=== PATIENT | male | born 1960 | race African-American/Black ===

== ENCOUNTER 2017-12-05 14:27 | Inpatient (IN) | payer BC ==
[2017-12-05] MEDS ORDERED: Labetalol IV* 5 MG/ML 20 ML VIAL IV PUSH ONE (15:18)
[2017-12-05 15:31] LABS: ABS Basophils 0.1 10^3/ul (0-0.2); ABS Eosinophils 0.3 10^3/ul (0-0.6); ABS Lymphocytes 1.7 10^3/ul (1.0-4.8); ABS Monocytes 0.7 10^3/ul (0-0.8); ABS Neutrophils 6.3 10^3/ul (1.5-7.7); ABS Nucleated RBC 0 10^3/ul; Eosinophil % 3.7 % (0-6); Hematocrit 40 % (42-52); Hemoglobin 13.8 g/dl (14.0-18.0); Lymphocyte % 18.9 % (25-47); Mean Corpuscular HGB Conc 35 g/dl (31-36); Mean Corpuscular Hemoglobin 32 pg (27-31); Mean Corpuscular Volume 92 fL (80-94); Mean Platelet Volume 8.1 um3 (7.4-10.4); Nucleated Red Blood Cells % 0.1; Platelet Count 255 10^3/ul (150-450); Red Blood Count 4.32 10^6/ul (4.00-5.40); Red Cell Distribution Width 14 % (10.5-15); White Blood Count 9.1 10^3/ul (3.5-10.8)
[2017-12-05 15:40] LABS: INR 1.09 (0.77-1.02)
--- NOTE | 2017-12-05 15:47 | RAD ---
HISTORY: htn COMPARISONS: None VIEWS: 1: frontal AP view of the chest at 3:39 PM FINDINGS: LINES AND TUBES: None. CARDIOMEDIASTINAL SILHOUETTE: The cardiac silhouette is enlarged. The aorta is tortuous.. PLEURA: The costophrenic angles are sharp. No pleural abnormalities are noted. LUNG PARENCHYMA: The lungs are clear. ABDOMEN: The upper abdomen is clear. There is no subphrenic gas. BONES AND SOFT TISSUES: No bone or soft tissue abnormalities are noted. IMPRESSION: CARDIOMEGALY WITH A TORTUOUS AORTA. IF THERE IS CLINICAL CONCERN FOR AORTIC DISSECTION, CONSIDER FURTHER EVALUATION WITH CT ANGIOGRAPHY OF THE CHEST.
[2017-12-05 15:54] LABS: EGFR Non-African American 76.1 (>60)
[2017-12-05] MEDS ORDERED: Labetalol IV* 200 MG in NS 0.9% 250 ML* 160 ML IVPB ONE (15:54)
--- NOTE | 2017-12-05 15:58 | ED ---
Hypertension - HPI Summary HPI Summary: This patient is a 57 year old M brought in by ambulance to ED with a chief complaint of hypertension since earlier today. The patient rates the pain 0/10 in severity. Symptoms aggravated by nothing. Symptoms alleviated by nothing. Patient reports chest congestion and cough (1.5 weeks ago) and SOB. Patient denies MURPYH, blurred vision, CP, back pain, and urinary problems. Patient has not been taking his HTN medications (Amlodipine). PMHx of HLD, denies DM and CAD. The patients PCP is in [place]. - History of Current Complaint Chief Complaint: EDHypertension Stated Complaint: DIFF BREATHING Time Seen by Provider: 12/05/17 15:16 Hx Obtained From: Patient Onset/Duration: Still Present Aggravating Factor(s): Nothing Alleviating Factor(s): Nothing Associated Signs & Symptoms: SOB, Other: - Patient reports chest congestion and cough (1.5 weeks ago) and SOB. Patient denies MURPHY, blurred vision, CP, back pain , and urinary problems. - Allergies/Home Medications Allergies/Adverse Reactions: Allergies Allergy/AdvReac Type Severity Reaction Status Date / Time No Known Allergies Allergy Verified 01/08/12 10:09 PMH/Surg Hx/FS Hx/Imm Hx Endocrine/Hematology History: Denies: Hx Diabetes, Hx Thyroid Disease Cardiovascular History: Reports: Hx Hypertension Respiratory History: Denies: Hx Asthma, Hx Chronic Obstructive Pulmonary Disease (COPD) GI History: Denies: Hx Ulcer - Surgical History Surgery Procedure, Year, and Place: 1998 - Hernia repair. 1986-ulnar nerve surgery Infectious Disease History: No Infectious Disease History: Denies: Hx Hepatitis, Hx Human Immunodeficiency Virus (HIV), Traveled Outside the [place] in Last 30 Days - Family History Known Family History: Positive: Hypertension - Social History Alcohol Use: Rare Substance Use Type: Reports: Marijuana Smoking Status (MU): Never Smoked Tobacco Review of Systems Negative: Blurred Vision Positive: Other - hypertenstion. Negative: Chest Pain Positive: Shortness Of Breath, Cough, Other - chest congestion Positive: no symptoms reported Positive: Other - denies back pain Negative: Headache All Other Systems Reviewed And Are Negative: Yes Physical Exam - Summary Physical Exam Summary: GENERAL: Patient is a well-developed and nourished M who is lying comfortable in the stretcher. Patient is not in any acute respiratory distress. HEAD AND FACE: Normocephalic EYES: PERRLA, EOMI x 2. EARS: Hearing grossly intact. MOUTH: Oropharynx within normal limits. NECK: Supple, trachea is midline, no adenopathy, no JVD, no carotid bruit. CHEST: Symmetric, no tenderness at palpation LUNGS: Clear to auscultation bilaterally. No wheezing or crackles. CVS: Regular rate and rhythm, S1 and S2 present, no murmurs or gallops appreciated. ABDOMEN: Soft, non-tender. Bowel sounds are normal. No abdominal abnormal pulsations. EXTREMITIES: Full ROM in all major joints, no edema, no cyanosis or clubbing. NEURO: Alert and oriented x 3. No acute neurological deficits. Speech is normal and follows commands. SKIN: Dry and warm Triage Information Reviewed: Yes Vital Signs On Initial Exam: Initial Vitals Temp Pulse Resp BP Pulse Ox 99.7 F 90 18 227/161 95 12/05/17 14:35 12/05/17 14:35 12/05/17 14:35 12/05/17 14:35 12/05/17 14:35 Vital Signs Reviewed: Yes Diagnostics - Vital Signs Vital Signs Temp Pulse Resp BP Pulse Ox 12/05/17 15:36 78 24 197/134 91 12/05/17 15:31 80 18 178/127 92 12/05/17 15:28 82 22 187/128 91 12/05/17 15:27 28 176/129 12/05/17 15:08 90 28 230/161 94 12/05/17 15:00 96 21 94 12/05/17 14:38 89 227/161 96 12/05/17 14:37 92 97 12/05/17 14:35 99.7 F 90 18 227/161 95 - Laboratory Lab Results: Lab Results 12/05/17 12/05/17 Range/Units 15:24 15:24 WBC 9.1 (3.5-10.8) 10^3/ul RBC 4.32 (4.00-5.40) 10^6/ul Hgb 13.8 L (14.0-18.0) g/dl Hct 40 L (42-52) % MCV 92 (80-94) fL MCH 32 H (27-31) pg MCHC 35 (31-36) g/dl RDW 14 (10.5-15) % Plt Count 255 (150-450) 10^3/ul MPV 8.1 (7.4-10.4) um3 Neut % (Auto) 68.9 (38-83) % Lymph % (Auto) 18.9 L (25-47) % Bent % (Auto) 7.7 H (0-7) % Eos % (Auto) 3.7 (0-6) % Baso % (Auto) 0.8 (0-2) % Absolute Neuts (auto) 6.3 (1.5-7.7) 10^3/ul Absolute Lymphs (auto) 1.7 (1.0-4.8) 10^3/ul Absolute Monos (auto) 0.7 (0-0.8) 10^3/ul Absolute Eos (auto) 0.3 (0-0.6) 10^3/ul Absolute Basos (auto) 0.1 (0-0.2) 10^3/ul Absolute Nucleated RBC 0 10^3/ul Nucleated RBC % 0.1 INR (Anticoag Therapy) 1.09 H (0.77-1.02) APTT 32.6 (26.0-36.3) seconds Result Diagrams: 12/06/17 05:26 12/06/17 05:26 Lab Statement: Any lab studies that have been ordered have been reviewed, and results considered in the medical decision making process. - Radiology CXR Radiology Interpretation Completed By: Radiologist - CARDIOMEGALY WITH A TORTUOUS AORTA. IF THERE IS CLINICAL CONCERN FOR AORTIC DISSECTION, CONSIDER FURTHER EVALUATION WITH CT ANGIOGRAPHY OF THE CHEST. Dr. Scanlon has reviewed this radiology report. - CT CTA chest/abd/pel CT Interpretation Completed By: Radiologist - Negative for aneurysm or dissection of the abdominal aorta. Nonemergent follow-up ultrasound of the LEFT kidney suggested to differentiate between a hyperdense cyst and a solid 2.4 cm lesion at the midpole. Dr. Scanlon has reviewed this radiology report. - EKG 1520 Cardiac Rate: NL - 87 BPM EKG Rhythm: Sinus Rhythm Summary of EKG Findings: LVH with minimal ST elevations in the anterior leads most likely secondary to LVH and L atrial enlargement. Re-Evaluation - Re-Evaluation First Eval Re-Evaluation Time: 16:49 Comment: Discussed results with the patient and plan for admission. Hypertension Course/Dx - Course Assessment/Plan: This patient is a 57 year old M brought in by ambulance to ED with a chief complaint of hypertension since earlier today. CXR reveals CARDIOMEGALY WITH A TORTUOUS AORTA. IF THERE IS CLINICAL CONCERN FOR AORTIC DISSECTION, CONSIDER FURTHER EVALUATION WITH CT ANGIOGRAPHY OF THE CHEST. CTA chest/abd/pel reveals Negative for aneurysm or dissection of the abdominal aorta. Nonemergent follow-up ultrasound of the LEFT kidney suggested to differentiate between a hyperdense cyst and a solid 2.4 cm lesion at the midpole. EKG done at 1520 reveals NSR at 87 BPM with LVH with minimal ST elevations in the anterior leads most likely secondary to LVH and L atrial enlargement. In the ED course, the patient was given Labetalol. The patient will be admitted. Case discussed with hospitalist. I discussed results with patient. The patient agrees with this plan. - Diagnoses Provider Diagnoses: Pulmonary embolism, PNA (pneumonia), Hypertension - Physician Notifications Discussed Care Of Patient With: Mack Astudillo Time Discussed With Above Provider: 17:43 Instructed by Provider To: Admit As Inpatient - Critical Care Time Critical Care Time: 30-74 min Discharge - Sign-Out/Discharge Documenting (check all that apply): Patient Departure - admit - Discharge Plan Condition: Stable Disposition: ADMITTED TO [facility] - Billing Disposition and Condition Condition: STABLE Disposition: Admitted to [facility] - Attestation Statements Document Initiated by Jimena: Yes Documenting Scribe: Cameron Mckeon Provider For Whom Jimena is Documenting (Include Credential): Angelina Scanlon MD Scribe Attestation: Cameron Gray, scribed for Angelina Scanlon MD on 12/07/17 at 0446. Scribe Documentation Reviewed: Yes Provider Attestation: The documentation as recorded by the Cameron hodges accurately reflects the service I personally performed and the decisions made by me, Angelina Scanlon MD
[2017-12-05] MEDS ORDERED: Iohexol 350* (CONTRAST) 500 ML MDV IV ONE (16:02)
--- NOTE | 2017-12-05 17:14 | RAD ---
INDICATION: Difficulty breathing. Congestion. Hypertension. Assess for aortic dissection. COMPARISON: December 05, 2017 chest radiograph. TECHNIQUE: Multidetector CT images were obtained from the lung apices to the ischial tuberosities with 100 mL Omnipaque 350. No oral contrast administered.. Multiplanar reformation including maximum intensity projection and 3-D arterial volume rendering. CHEST REPORT: Patchy alveolar consolidation at the RIGHT lower lobe. Negative for pleural effusions or pneumothorax. Negative for thoracic lymphadenopathy. Upper normal heart size. Negative for pericardial effusion.. Normal diameter thoracic aorta. Negative for aortic dissection. Discrete filling defect within the anterior segmental pulmonary artery of the RIGHT upper lobe consistent with pulmonary embolism. Additional acute pulmonary embolism is lies within the lateral segment of the RIGHT middle lobe. Negative for suspicious thoracic osseous lesions. CHEST IMPRESSION: #. Small burden of acute pulmonary embolism at the RIGHT upper lobe and RIGHT middle lobe as described. #. Consolidation at the RIGHT lower lobe may be secondary to pneumonia or smaller CT occult pulmonary emboli. #. Negative for pleural effusion. ABDOMEN PELVIS REPORT: LIVER / GALLBLADDER / PANCREAS / SPLEEN: Unremarkable liver, gallbladder, pancreas, and spleen within limits of arterial phase only series. Splenule noted adjacent to the spleen. ALIMENTARY TRACT: Negative for CT abnormality of the upper GI, small bowel, infra cecal appendix, or colon. Negative for ascites or free air. Small fat-containing umbilical hernia without inflammatory change. MESENTERIC: Unremarkable. ADRENAL / GENITOURINARY: Normal adrenal glands. Symmetric arterial phase enhancement of the kidneys. 2.4 cm hypodense cortical lesion at the midpole of the LEFT kidney is denser than typical for a simple cyst. 7.7 cm simple cyst at the lower pole of the LEFT kidney. Negative for hydronephrosis. Unremarkable ureters and urinary bladder. Symmetric seminal vesicles. RETROPERITONEAL: Negative for lymphadenopathy. VASCULAR: Normal diameter abdominal aorta and top normal diameter common iliac arteries. Negative for arterial dissection. No significant atherosclerotic plaque evident. Physiologic distention of the IVC. BONES: Negative for suspicious osseous lesions. SOFT TISSUE: Unremarkable. IMPRESSION: #. Negative for aneurysm or dissection of the abdominal aorta. #. Nonemergent follow-up ultrasound of the LEFT kidney suggested to differentiate between a hyperdense cyst and a solid 2.4 cm lesion at the midpole. #. Results discussed with Dr. Scanlon 12/05/2017 5:11 PM EDT
[2017-12-05] MEDS ORDERED: cefTRIAXone(*) 1 GM in NS 0.9% 50 ML* 50 ML IVPB ONE (17:32)
[2017-12-05] MEDS ORDERED: Azithromycin IV(*) 500 MG in NS 0.9% 250 ML* 250 ML IVPB ONE (17:32)
[2017-12-05] MEDS ORDERED: Potassium Chloride LIQUID* 20 MEQ PACKET PO ONE (18:00)
[2017-12-05] MEDS ORDERED: Ondansetron INJ* 2 MG/ML VIAL IV PRN (18:24)
[2017-12-05] MEDS ORDERED: Acetaminophen TAB* 325 MG PO PRN (18:24)
[2017-12-05] MEDS ORDERED: Benzonatate CAP* 100 MG PO PRN (18:24)
[2017-12-05] MEDS ORDERED: Labetalol IV* 200 MG in NS 0.9% 250 ML* 160 ML IVPB SCH (19:00)
[2017-12-05] MEDS ORDERED: NS 0.9% IVPB SCH (20:00)
[2017-12-05] MEDS ORDERED: LABETALOL IVPB SCH (20:00)
[2017-12-05] MEDS: Rivaroxaban TAB(*) 15 MG PO SCH (20:46)
[2017-12-05] MEDS: guaiFENesin ER TAB 600 MG PO SCH (20:47)
[2017-12-05] MEDS ORDERED: niCARdipine 0.1MG/ML IVPREMIX* 20 MG/200 ML BAG IV SCH (23:00)
[2017-12-05] MEDS ORDERED: niCARdipine 0.1MG/ML IVPREMIX* 20 MG/200 ML BAG IV ONE (23:24)
[2017-12-05] MEDS ORDERED: Carvedilol TAB* 6.25 MG ONE (23:33)
--- NOTE | 2017-12-05 23:54 | HP ---
CC: Dr. Longoria * HISTORY AND PHYSICAL: DATE OF ADMISSION: 12/05/17 PRIMARY CARE DOCTOR: Dr. Longoria. ATTENDING PHYSICIAN WHILE IN THE HOSPITAL: Dr. Mack Astudillo.* (DICTATED BY MARY VOGT) CHIEF COMPLAINT: High blood pressure, cough, chest congestion. HISTORY OF PRESENT ILLNESS: Mr. Bishop is a 71-year-old male with past medical history significant for only hypertension and hyperlipidemia. The patient was previously on medications for his blood pressure, but he stopped taking them last April along with the medications for his hyperlipidemia due to feeling if he did not need them anymore. The patient has had a significant elevation in his blood pressure before with noncompliance of medications; however, he states that he generally had a good control while on his medications. The patient has been having 2 weeks of productive cough with intermittent nasal congestion, malaise, and hemoptysis. The patient has no sick contact. No recent changes in his diet. The patient has not been taking any medications for his cough [id number]. No one around the patient has a flu. The patient does work at [employer] and has contact with students at the [employer]. The patient has a strong family history of high blood pressure. No known family history of coronary artery disease. The patient has no other known systemic diseases. The patient never had a heart attack. The patient has never seen a software educator or had any cardiac workup that he knows of. The patient generally coughs with a deep breath and has troubling lying flat; however, he is not having trouble any lying flat, swelling in his legs, or other symptoms of CHF. The patient denied any recent long car trips, does not have any known cancers. No recent surgeries or other periods of inactivity except for being off work 4 days last week. The patient did not have any chest pain. The patient has not passed out. The patient denies any fevers or chills , nausea, vomiting, abdominal pain. The patient has trouble staying away from salty foods per his own report and knows he should better, the patient has no other significant changes in his diet. The patient went to his primary care doctor today for his respiratory complaints and had a blood pressure per his report highest level of 212/135 at his primary care doctor's office. The patient came to the emergency department and initially had a blood pressure of 227/161, which decreased to 179 /131 on labetalol drip. The patient had a concern for aortic dissection on his chest x-ray and had a CTA of his chest, which revealed several subsegmental pulmonary emboli and consolidation possibly consistent with pneumonia. The patient was started on labetalol drip as well as being given azithromycin and ceftriaxone for possible community acquired pneumonia and also referred to the hospitalist service for evaluation of admission. PAST MEDICAL HISTORY: Hypertension, hyperlipidemia. PAST SURGICAL HISTORY: Ulnar nerve repair, hernia repair. MEDICATIONS: The patient is on no medications. The patient was previously prescribed: 1. Benazepril. 2. Amlodipine. 3. Pravastatin. ALLERGIES: The patient has no known drug allergies. FAMILY HISTORY: The patient's mother of lymphoma. The patient's father of old age and possibly had a diagnosis of angina of unknown cause. The patient's brother recently had TIA in the setting of hypertensive emergency. The patient has several symptoms with hypertension. The patient has no other significant cancers or heart disease that runs in his family. SOCIAL HISTORY: The patient has never smoked. The patient drinks alcohol very rarely. The patient smokes marijuana occasionally. 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 The patient is from his , has 2 children. The patient's surrogate decision maker will be his , Belem Bishop. REVIEW OF SYSTEMS: A 14-point review of systems was reviewed and is negative except as above in the HPI. PHYSICAL EXAMINATION GENERAL: The patient is a 57-year-old male, who appears stated age and sitting comfortably in bed, in no acute distress. VITAL SIGNS: At the time of evaluation, temperature 99.7, pulse rate 82, respiratory rate 19, oxygen saturation 94% on room air, blood pressure 179/136. HEENT: Head: Normocephalic, atraumatic. Sclerae anicteric. No conjunctival injection. Nasal mucosa moist. Oral mucosa moist. No pharyngeal erythema, discharge, or exudate. NECK: Supple, nontender. No lymphadenopathy. No carotid bruit auscultated. No JVD. RESPIRATORY: Clear to auscultation bilaterally. No wheezes, rales or rhonchi. Good air exchange bilaterally. HEART: Regular rate and rhythm. Loud S2 with normal splitting. No clicks, murmurs, gallops or rubs. Pulse is 2+ in the dorsalis pedis, posterior tibialis , and radial areas. Trace bilateral lower extremity edema. ABDOMEN: Soft, distended, nontender. Bowel sounds presents. Normoactive in all 4 quadrants. No hepatosplenomegaly. No abdominal bruits auscultated. No hepatojugular reflux. GENITOURINARY: No suprapubic or CVA tenderness. SKIN: Clean, dry, intact. No rash. NEUROLOGIC: Cranial nerves II through XII intact. No focal deficits. Alert and oriented x3. PSYCHIATRIC: Pleasant and cooperative. DIAGNOSTIC STUDIES/LAB DATA: White blood cell count 9.1, hemoglobin 13.8, hematocrit 40, platelet count 255, INR 1.09, aPTT 32.6. Sodium 140, potassium 3.4, chloride 105, carbon dioxide 27, anion gap 8, BUN 15, creatinine 1.01, glucose 92, lactic acid 0.7, calcium 8.9, bilirubin 0.1, AST 40, ALT 14, alkaline phosphatase 104, Troponin I 0.01, CRP 18.3, BNP 74, total protein 7.4, albumin 3.9, globulin 4.0. STUDIES: Chest x-ray read as cardiomegaly with torturous aorta. If there is clinical concern for aortic dissection, consider further evaluation with CT angiography of the chest. Electrocardiogram shows normal sinus rhythm, concave ST elevation in V1, V2, and V3 in the setting of incomplete right bundle branch block, probable left anterior enlargement. No signs of right heart strain, left axis deviation, left ventricular hypertrophy by Sokolow-Pina criteria with R-wave greater than 13 millivolts in aVL. Chest, abdomen, pelvis CTA read as small burden of acute pulmonary embolism at the right upper lobe and right middle lobe, consolidation of the right lower lobe may be secondary to pneumonia or smaller occult pulmonary emboli, negative for pleural effusion, negative for aneurysm, resection of the abdominal aorta, non-emergent followup ultrasound of the left kidney suggested to differentiate between a cyst and a solid 2.4 cm lesion at the mid pole. ASSESSMENT AND PLAN: IMPRESSION: Mr. Bishop is 57-year-old male with past medical history significant for hypertension, hyperlipidemia, has been noncompliant with medications and has had 2 weeks upper respiratory symptoms, who was sent in from his primary care provider for very high blood pressure and was found have possible pneumonia as well as small segmental pulmonary emboli within the lungs. The patient will be admitted to hospital for treatment of his blood pressure, pneumonia, and his pulmonary embolism. 1. Hypertensive urgency. The patient has blood pressures with a maximum reading of 230/161. The patient has no signs of end organ damage with normal kidney function, negative troponin to this point. No changes in vision. No neurologic deficits. No changes. The patient has shortness of breath related to upper respiratory infection, but no increased shortness of breath, no signs of acute congestive heart failure. The patient has a normal BNP. The patient will be admitted to the hospital, started on labetalol drip for a goal blood pressure between 160 and 180 for the first 24 hours and then the patient will be reintroduced with his home blood pressure medications to avoid hypoperfusion. The patient will be monitored closely in the ICU for bradycardia , neurologic changes, and chest pain. The patient will have a repeat EKG in the morning. The patient will have echocardiogram as his echocardiogram showed signs of left ventricular enlargement and the patient will have serial troponins and rechecked in the morning for end organ damage. 2. Community acquired pneumonia. The patient has what sounds to be a pneumonia that may have started as an upper respiratory infection and evolved. The patient's CT also states that this could be due to pulmonary embolism; however, given the patient borderline fever, heart rate over 90 and elevated CRP , we will treat at this time for community acquired pneumonia. We will repeat a procalcitonin in the morning. We will check urine antigens and monitor closely with supportive treatment with flutter valve, antitussives, and expectorants. 3. Pulmonary emboli. The patient has 2 segmental pulmonary emboli. The patient has no objective signs of pulmonary embolism. He had no chest pain. No hypoxia. No tachycardia. No hemoptysis. No hypotension. The patient has an sPESI score of 0 indicating a low risk for complication. The patient will be started on Xarelto 15 mg p.o. b.i.d. This is an unprovoked deep venous thrombosis. The duration of this therapy will be decided after a minimum of 3 months with the patient's primary care provider. The patient has no objective signs of deep venous thrombosis. We will not check for lower extremity deep venous thrombosis at this time due to initiation of anticoagulation and strong cardiopulmonary reserve. We will check troponins and echocardiogram to assess for right heart dysfunction related to the patient's pulmonary embolism. 4. Hyperlipidemia. The patient will be started on Lipitor while in the hospital and will be transitioned back to his home dose of pravastatin, which he should be taking upon discharge. 5. DVT prophylaxis. The patient is being started on Xarelto. 6. FEN. The patient will have a heart healthy diet without caffeine as well, so the patient will have a lipid profile and the hemoglobin A1c. 7. Disposition. The patient will be admitted inpatient to the ICU. TIME SPENT: Approximately 1 hour spent on this admission with the patient, 30 of which was spent [id number] with the patient obtaining history and physical and discussing treatment plan. This plan was discussed with my attending, Dr. Mack Astudillo, and he is in agreement. MARY VOGT [id number]/[facility] #: [id number] SHERIN
[2017-12-06] MEDS: Carvedilol TAB* 25 MG PO SCH ×2 (00:11→08:43)
[2017-12-06 05:35] LABS: ABS Basophils 0.1 10^3/ul (0-0.2); ABS Eosinophils 0.4 10^3/ul (0-0.6); ABS Lymphocytes 2.2 10^3/ul (1.0-4.8); ABS Neutrophils 5.7 10^3/ul (1.5-7.7); ABS Nucleated RBC 0 10^3/ul; Eosinophil % 4.5 % (0-6); Hematocrit 36 % (42-52); Hemoglobin 12.2 g/dl (14.0-18.0); Lymphocyte % 23.4 % (25-47); Mean Corpuscular HGB Conc 34 g/dl (31-36); Mean Corpuscular Hemoglobin 32 pg (27-31); Mean Corpuscular Volume 92 fL (80-94); Mean Platelet Volume 8.1 um3 (7.4-10.4); Nucleated Red Blood Cells % 0; Platelet Count 222 10^3/ul (150-450); Red Blood Count 3.88 10^6/ul (4.00-5.40); Red Cell Distribution Width 14 % (10.5-15); White Blood Count 9.4 10^3/ul (3.5-10.8)
[2017-12-06] MEDS ORDERED: Potassium Chloride LIQUID* 20 MEQ PACKET PO ONE (06:58)
[2017-12-06] MEDS: guaiFENesin ER TAB 600 MG PO SCH ×2 (08:44→21:28)
[2017-12-06] MEDS: Rivaroxaban TAB(*) 15 MG PO SCH ×2 (08:44→21:28)
--- NOTE | 2017-12-06 13:30 | ECHO ---
Patient: JELLY PERLA [facility] Rec#: [id number] : 1960 Date: 12/06/2017 Age: 57y Height: 185.42 cm / 73.0 in Weight: 104.33 kg / 229.9 lbs Sex: M BSA: 2.28 Room#: ICU 8 Admit Date#: 12/05/2017 Type: Inpatient Referring: John Joyner Reading: Saurabh Peterson MD Liquid Chlorine Operator: Regina Murray RDCS,RDMS CC: Peggy Longoria MD Transthoracic Echocardiogram Indication: PE, ABN EKG BP: 151/107 HR: 71 Rhythm: NSR Findings History: HTN, HLD Technical Comments: The study quality is good. Left Ventricle: The left ventricular chamber size is normal. Moderate concentric left ventricular hypertrophy is observed. The estimated ejection fraction is 55-60%. Abnormal left ventricular diastolic function is observed. The left ventricular diastolic filling pattern is consistent with pseudonormalization. The left ventricular diastolic filling pattern is consistent with elevated mean left atrial pressure. Left Atrium: The left atrium is moderately dilated. Right Ventricle: The right ventricular chamber size and systolic function are within normal limits. Right Atrium: The right atrial cavity size is normal. Aortic Valve: The aortic valve is trileaflet. Systolic excursion of the aortic valve is normal. There is a trace of aortic regurgitation. There is no evidence of aortic stenosis. Mitral Valve: The mitral valve leaflets are mildly thickened. There is mild mitral regurgitation. There is no evidence of mitral stenosis. Tricuspid Valve: The tricuspid valve leaflets are normal. There is trace tricuspid regurgitation. Unable to estimate the right ventricular systolic pressure. Pulmonic Valve: The pulmonic valve appears normal. There is a trace pulmonic regurgitation. Pericardium: There is no significant pericardial effusion. Aorta: There is mild dilatation of the ascending aorta. There is no dilatation of the aortic arch. There is moderate dilatation of the aortic root. Pulmonary Artery: The main pulmonary artery appears normal. Venous: The inferior vena cava is dilated. There is a greater than 50% respiratory change in the inferior vena cava dimension. Summary: There was not any prior study for comparison. Conclusions Moderate concentric left ventricular hypertrophy is observed. The estimated ejection fraction is 55-60%. The left ventricular diastolic filling pattern is consistent with pseudonormalization. The left atrium is moderately dilated. There is trace tricuspid regurgitation. There is mild mitral regurgitation. Measurements Name Value Normal Range RVIDd (AP) 2D 3.1 cm (0.9 - 2.6) RVDdMajor (2D) 2.9 cm (2.2 - 4.4) RAd ISD 4CH 4.3 cm (3.4 - 4.9) RA (A4C)W 4.1 cm (2.9 - 4.6) IVSd (2D) 1.8 cm (0.6 - 1) LVPWd (2D) 1.6 cm (0.6 - 1) LVIDd (2D) 5 cm (3.6 - 5.4) LVIDs (2D) 4 cm - LV FS (2D) 20 % (25 - 45) Aortic Annulus 2.3 cm (1.4 - 2.6) Ao root diameter (2D) 4.2 cm (2.1 - 3.5) Ascending Ao 3.8 cm (2.1 - 3.4) Aortic arch 3.4 cm (1.8 - 3.4) LA dimension (AP) 2D 4.6 cm (2.3 - 3.8) LAd ISD 4CH 5.1 cm (2.9 - 5.3) LA ISD 4CH W 4.6 cm (2.5 - 4.5) Name Value Normal Range LA ESV SP 4CH (A/L) 102.81 ml - LA ESV SP 2CH (A/L) 93.63 ml - LA ESV BP (A/L) 105.54 ml - LA ESV BP (A/L) index 46 ml/m2 - LA ESV SP 4CH (MOD) 94.93 ml - LA ESV SP 2CH (MOD) 89.91 ml - Name Value Normal Range MV E-wave Vmax 0.6 m/sec - MV deceleration time 261 msec - MV A-wave Vmax 0.5 m/sec - MV E:A ratio 1.2 ratio - P. vein S-wave Vmax 0.4 m/sec - P. vein D-wave Vmax 0.3 m/sec - P. vein S:D Vmax ratio 1.4 ratio - P. vein A-wave duration 121 msec - LV septal e' Vmax 0.04 m/sec - LV lateral e' Vmax 0.04 m/sec - LV E:e' septal ratio 14 ratio - LV E:e' lateral ratio 14 ratio - Name Value Normal Range AV Vmax 1.3 m/sec - AV VTI 27.3 cm - AV peak gradient 7 mmHg - AV mean gradient 4.2 mmHg - LVOT Vmax 1 m/sec - LVOT VTI 21 cm - LVOT peak gradient 4 mmHg - LVOT mean gradient 2.3 mmHg - Name Value Normal Range RAP 8 mmHg - IVC diameter 2.6 cm - Name Value Normal Range PV Vmax 0.5 m/sec - PV peak gradient 1 mmHg -
--- NOTE | 2017-12-06 15:41 | PN ---
Subjective Date of Service: 12/06/17 - Interval History: Patient is feeling well today. Minor SOB, persistent but improving cough. Patient denies CP, Dizziness, F/C, N/V, abdominal pain, diarrhea, dysuria, MURPHY, changes in vision, weakness, or other pain. Family History: Unchanged from Admission Social History: Unchanged from Admission Past Medical History: Unchanged from Admission Objective Active Medications: Acetaminophen (Tylenol Tab*) 650 mg PO Q6H PRN PRN Reason: FEVER/PAIN Amlodipine Besylate (Norvasc Tab*) 5 mg PO DAILY [facility] Atorvastatin Calcium (Lipitor*) 40 mg PO 1700 [facility] Benzonatate (Tessalon Cap*) 100 mg PO BID PRN PRN Reason: COUGH Carvedilol (Coreg Tab*) 12.5 mg PO BID [facility] Guaifenesin (Mucinex*) 1,200 mg PO BID [facility] Last Admin: 12/06/17 08:44 Dose: 1,200 mg Ceftriaxone Sodium 1 gm/ (Sodium Chloride) 50 mls @ 200 mls/hr IVPB Q24H [facility] Azithromycin 250 mg/ Sodium (Chloride) 250 mls @ 250 mls/hr IVPB Q24H [facility] Ondansetron HCl (Zofran Inj*) 4 mg IV Q6H PRN PRN Reason: NAUSEA Rivaroxaban (Xarelto(*)) 15 mg PO BID [facility] Last Admin: 12/06/17 08:44 Dose: 15 mg Vital Signs - 8 hr 12/06/17 12/06/17 12/06/17 08:00 08:01 08:30 Temperature 99.4 F Pulse Rate 63 63 65 Respiratory 18 14 22 Rate Blood Pressure 152/109 155/111 (mmHg) O2 Sat by Pulse 93 92 93 Oximetry 12/06/17 12/06/17 12/06/17 09:00 09:01 10:00 Temperature Pulse Rate 66 66 Respiratory 23 21 17 Rate Blood Pressure 169/117 (mmHg) O2 Sat by Pulse 93 93 Oximetry 12/06/17 12/06/17 12/06/17 10:06 10:30 11:00 Temperature Pulse Rate Respiratory 21 18 20 Rate Blood Pressure 132/97 152/107 147/103 (mmHg) O2 Sat by Pulse Oximetry 12/06/17 12/06/17 12/06/17 11:01 11:30 12:00 Temperature Pulse Rate Respiratory 23 19 20 Rate Blood Pressure 163/110 146/104 (mmHg) O2 Sat by Pulse Oximetry 12/06/17 12/06/17 12/06/17 12:01 12:30 13:00 Temperature Pulse Rate Respiratory 17 19 23 Rate Blood Pressure 161/114 153/108 (mmHg) O2 Sat by Pulse Oximetry 12/06/17 12/06/17 12/06/17 13:01 13:30 14:00 Temperature Pulse Rate Respiratory 26 20 23 Rate Blood Pressure 161/108 (mmHg) O2 Sat by Pulse Oximetry 12/06/17 12/06/17 12/06/17 14:30 15:00 15:01 Temperature Pulse Rate Respiratory 22 23 20 Rate Blood Pressure 139/95 130/88 (mmHg) O2 Sat by Pulse Oximetry Oxygen Devices in Use Now: None Appearance: Patient is a 57yo male who appears stated age and is sitting in the bed in NAD. Eyes: No Scleral Icterus, PERRLA Ears/Nose/Mouth/Throat: NL Teeth, Lips, Gums, Clear Oropharnyx, Mucous Membranes Moist Neck: NL Appearance and Movements; NL JVP, Trachea Midline Respiratory: Symmetrical Chest Expansion and Respiratory Effort, Clear to Auscultation Cardiovascular: NL Sounds; No Murmurs; No JVD, RRR, No Edema Abdominal: NL Sounds; No Tenderness; No Distention, No Hepatosplenomegaly Lymphatic: No Cervical Adenopathy Extremities: No Edema, No Clubbing, Cyanosis Skin: No Rash or Ulcers, No Nodules or Sclerosis Neurological: Alert and Oriented x 3, NL Sensation, NL Muscle Strength and Tone , - - CN II-XII intact. Result Diagrams: 12/06/17 05:26 12/06/17 05:26 Additional Lab and Data: Lab Results Microbiology and Other Data: Microbiology 12/06/17 08:28 Legionella Urinary Antigen - Final Urine Negative Legionella Antigen Streptococcus pneumoniae Ag Screen - Final Negative S. pneumo Antigen 12/05/17 19:42 Nasal Screen MRSA (PCR) - Final Nasal Mrsa Not Detected Assess/Plan/Problems-Billing Assessment: Patient is a 57yo male with a PMH for HTN, HLD who presents with cough and was found to have hypertensive urgency, Segmental Pulmonary Emboli and possible Community acquired pneumonia. - Patient Problems (1) Hypertensive urgency Current Visit: Yes Status: Acute Code(s): I16.0 - HYPERTENSIVE URGENCY SNOMED Code(s): 485045741 Comment: - Initial BP up to 230 systolic. - Almost 24hrs after reading and BP is down to approximately 160 systolic. - No signs of hypoperfusion - Started on Carvedilol PO, decrease to 12.5mg BID and Start Low-dose amlodipine - Plan to treat to goal BP - EKG and Echo consistent with LVH consistent with chronic uncontrolled HTN. - No signs of end-organ damage or acute CHF. (2) Community acquired pneumonia Current Visit: Yes Status: Acute Code(s): J18.9 - PNEUMONIA, UNSPECIFIED ORGANISM SNOMED Code(s): 272084784 Comment: - Productive cough, CT evidence of consolidation - Will treat for CAP despite negative procalcitonin - Cough improving with supportive care and pulmonary toilet. (3) Pulmonary embolism Current Visit: Yes Status: Acute Code(s): I26.99 - OTHER PULMONARY EMBOLISM WITHOUT ACUTE COR PULMONALE SNOMED Code(s): 87340082 Comment: - Segmental x2 - Unprovoked - sPESI 0 - Started on Xarelto for treatment of at least 3 months. - No right heart strain or elevated troponins. (4) Hyperlipidemia Current Visit: Yes Status: Acute Code(s): E78.5 - HYPERLIPIDEMIA, UNSPECIFIED SNOMED Code(s): 51339022 Comment: - Resume statin which patient has not been taking. (5) DVT prophylaxis Current Visit: Yes Status: Acute Code(s): FRA9712 - SNOMED Code(s): 116794182 Comment: - Xarelto (6) Full code status Current Visit: Yes Status: Acute Code(s): Z78.9 - OTHER SPECIFIED HEALTH STATUS SNOMED Code(s): 586667965
[2017-12-06] MEDS ORDERED: amLODIPine TAB* 5 MG PO SCH (16:00)
[2017-12-06] MEDS: Azithromycin IV(*) 250 MG in NS 0.9% 250 ML* 250 ML IVPB SCH (16:36)
[2017-12-06] MEDS: Atorvastatin* 40 MG TAB PO SCH (16:42)
[2017-12-06] MEDS: cefTRIAXone(*) 1 GM in NS 0.9% 50 ML* 50 ML IVPB SCH (18:40)
[2017-12-06] MEDS ORDERED: Carvedilol TAB* 6.25 MG PO SCH (21:00)
[2017-12-07 06:22] LABS: ABS Basophils 0.1 10^3/ul (0-0.2); ABS Eosinophils 0.5 10^3/ul (0-0.6); ABS Lymphocytes 2.1 10^3/ul (1.0-4.8); ABS Monocytes 0.9 10^3/ul (0-0.8); ABS Nucleated RBC 0 10^3/ul; Eosinophil % 4.8 % (0-6); Hematocrit 39 % (42-52); Hemoglobin 12.8 g/dl (14.0-18.0); Lymphocyte % 21.9 % (25-47); Mean Corpuscular HGB Conc 33 g/dl (31-36); Mean Corpuscular Hemoglobin 31 pg (27-31); Mean Corpuscular Volume 93 fL (80-94); Mean Platelet Volume 8.6 um3 (7.4-10.4); Nucleated Red Blood Cells % 0.1; Platelet Count 229 10^3/ul (150-450); Red Blood Count 4.13 10^6/ul (4.00-5.40); Red Cell Distribution Width 14 % (10.5-15); White Blood Count 9.5 10^3/ul (3.5-10.8)
[2017-12-07 06:45] LABS: EGFR Non-African American 66.9 (>60)
[2017-12-07] MEDS: amLODIPine TAB* 5 MG PO SCH (08:01)
[2017-12-07] MEDS: Carvedilol TAB* 25 MG PO SCH ×2 (08:01→19:47)
[2017-12-07] MEDS: guaiFENesin ER TAB 600 MG PO SCH ×2 (08:01→19:47)
[2017-12-07] MEDS: Rivaroxaban TAB(*) 15 MG PO SCH ×2 (08:01→19:47)
[2017-12-07] MEDS: Lactobacillus Acidophilus* 1 TAB PO SCH (15:16)
[2017-12-07] MEDS: Lisinopril TAB* 5 MG PO SCH (15:25)
--- NOTE | 2017-12-07 15:34 | PN ---
Subjective Date of Service: 12/07/17 Interval History: Patient is feeling well. Cough is diminishing. Patient denies CP, SOB, dizziness , F/C, N/V, abdominal pain. Patient is having loose stools. Patient denies dysuria. oliguria, or other alarming symptoms. Family History: Unchanged from Admission Social History: Unchanged from Admission Past Medical History: Unchanged from Admission Objective Active Medications: Acetaminophen (Tylenol Tab*) 650 mg PO Q6H PRN PRN Reason: FEVER/PAIN Amlodipine Besylate (Norvasc Tab*) 10 mg PO DAILY [facility] Last Admin: 12/07/17 08:01 Dose: 10 mg Atorvastatin Calcium (Lipitor*) 40 mg PO 1700 [facility] Last Admin: 12/06/17 16:42 Dose: 40 mg Benzonatate (Tessalon Cap*) 100 mg PO BID PRN PRN Reason: COUGH Carvedilol (Coreg Tab*) 25 mg PO BID [facility] Last Admin: 12/07/17 08:01 Dose: 25 mg Guaifenesin (Mucinex*) 1,200 mg PO BID [facility] Last Admin: 12/07/17 08:01 Dose: 1,200 mg Ceftriaxone Sodium 1 gm/ (Sodium Chloride) 50 mls @ 200 mls/hr IVPB Q24H [facility] Last Admin: 12/06/17 18:40 Dose: 200 mls/hr Azithromycin 250 mg/ Sodium (Chloride) 250 mls @ 250 mls/hr IVPB Q24H [facility] Last Admin: 12/06/17 16:36 Dose: 250 mls/hr Lactobacillus Rhamnosus (Lactobacillus Acidophilus*) 1 tab PO DAILY [facility] Last Admin: 12/07/17 15:16 Dose: 1 tab Lisinopril (Prinivil Tab*) 5 mg PO DAILY [facility] Last Admin: 12/07/17 15:25 Dose: 5 mg Ondansetron HCl (Zofran Inj*) 4 mg IV Q6H PRN PRN Reason: NAUSEA Rivaroxaban (Xarelto(*)) 15 mg PO BID [facility] Last Admin: 12/07/17 08:01 Dose: 15 mg Vital Signs - 8 hr 12/07/17 12/07/17 12/07/17 07:31 08:00 08:46 Temperature 98.9 F 98.6 F Pulse Rate 69 69 Respiratory 20 20 20 Rate Blood Pressure 179/109 177/120 (mmHg) O2 Sat by Pulse 98 92 Oximetry 12/07/17 12/07/17 11:31 15:15 Temperature 98.1 F 98.6 F Pulse Rate 61 66 Respiratory 18 20 Rate Blood Pressure 152/101 180/119 (mmHg) O2 Sat by Pulse 96 99 Oximetry Oxygen Devices in Use Now: None Appearance: Patient is a 57yo male who appears stated age and is sitting in the bed in NAD. Eyes: No Scleral Icterus, PERRLA Ears/Nose/Mouth/Throat: NL Teeth, Lips, Gums, Clear Oropharnyx, Mucous Membranes Moist Neck: NL Appearance and Movements; NL JVP Respiratory: Symmetrical Chest Expansion and Respiratory Effort, Clear to Auscultation Cardiovascular: NL Sounds; No Murmurs; No JVD, RRR, No Edema Abdominal: NL Sounds; No Tenderness; No Distention, No Hepatosplenomegaly Lymphatic: No Cervical Adenopathy Extremities: No Edema, No Clubbing, Cyanosis Skin: No Rash or Ulcers, No Nodules or Sclerosis Neurological: Alert and Oriented x 3, NL Sensation, NL Muscle Strength and Tone , - - CN II-XII intact. Result Diagrams: 12/07/17 05:56 12/07/17 05:56 Additional Lab and Data: Lab Results Microbiology and Other Data: Microbiology 12/06/17 08:28 Legionella Urinary Antigen - Final Urine Negative Legionella Antigen Streptococcus pneumoniae Ag Screen - Final Negative S. pneumo Antigen 12/05/17 19:42 Nasal Screen MRSA (PCR) - Final Nasal Mrsa Not Detected Assess/Plan/Problems-Billing Assessment: Patient is a 57yo male with a PMH for HTN, HLD who presents with cough and was found to have hypertensive urgency, Segmental Pulmonary Emboli and possible Community acquired pneumonia. - Patient Problems (1) Hypertensive urgency Current Visit: Yes Status: Acute Code(s): I16.0 - HYPERTENSIVE URGENCY SNOMED Code(s): 638063945 Comment: - Initial BP up to 230 systolic. - No signs of hypoperfusion - Very poor control on Carvedilol PO 25mg BID and Amlodipine 10mg PO. Start Lisinopril 5mg PO daily. - Plan to treat to goal BP - EKG and Echo consistent with LVH consistent with chronic uncontrolled HTN. - No signs of end-organ damage or acute CHF. (2) Community acquired pneumonia Current Visit: Yes Status: Acute Code(s): J18.9 - PNEUMONIA, UNSPECIFIED ORGANISM SNOMED Code(s): 912263424 Comment: - Productive cough, CT evidence of consolidation - Will treat for CAP despite negative procalcitonin - Cough improving with supportive care and pulmonary toilet. (3) Pulmonary embolism Current Visit: Yes Status: Acute Code(s): I26.99 - OTHER PULMONARY EMBOLISM WITHOUT ACUTE COR PULMONALE SNOMED Code(s): 27161346 Comment: - Segmental x2 - Unprovoked - sPESI 0 - Started on Xarelto for treatment of at least 3 months. - No right heart strain or elevated troponins. - Will need 21 total days of 15mg PO BID. (4) Hyperlipidemia Current Visit: Yes Status: Acute Code(s): E78.5 - HYPERLIPIDEMIA, UNSPECIFIED SNOMED Code(s): 16273374 Comment: - Resume statin which patient has not been taking. (5) DVT prophylaxis Current Visit: Yes Status: Acute Code(s): TWX0721 - SNOMED Code(s): 608493141 Comment: - Xarelto (6) Full code status Current Visit: Yes Status: Acute Code(s): Z78.9 - OTHER SPECIFIED HEALTH STATUS SNOMED Code(s): 417501894 Status and Disposition: Inpatient.
[2017-12-07] MEDS: Atorvastatin* 40 MG TAB PO SCH (16:28)
[2017-12-07] MEDS: Azithromycin IV(*) 250 MG in NS 0.9% 250 ML* 250 ML IVPB SCH (16:29)
[2017-12-07] MEDS: cefTRIAXone(*) 1 GM in NS 0.9% 50 ML* 50 ML IVPB SCH (17:35)
[2017-12-08] MEDS: amLODIPine TAB* 5 MG PO SCH (09:23)
[2017-12-08] MEDS: Rivaroxaban TAB(*) 15 MG PO SCH (09:23)
[2017-12-08] MEDS: Carvedilol TAB* 25 MG PO SCH (09:23)
[2017-12-08] MEDS: Lactobacillus Acidophilus* 1 TAB PO SCH (09:23)
[2017-12-08] MEDS: Lisinopril TAB* 5 MG PO SCH (09:23)
[2017-12-08] MEDS: guaiFENesin ER TAB 600 MG PO SCH (09:23)
[2017-12-08 09:34] VITALS: BP 180/112
--- NOTE | 2017-12-09 06:02 | DS ---
CC: Dr. Peggy Longoria; Dr. Mack Astudillo * DISCHARGE SUMMARY: DATE OF ADMISSION: 12/05/17 DATE OF DISCHARGE: 12/08/17 PRIMARY CARE PROVIDER: Dr. Peggy Longoria MY ATTENDING WHILE IN THE HOSPITAL: Dr. Mack Astudillo * (DICTATED BY MARY VOGT) PRIMARY DISCHARGE DIAGNOSES: 1. Hypertensive urgency. 2. Community-acquired pneumonia. 3. Segmental pulmonary embolisms. SECONDARY DISCHARGE DIAGNOSES: 1. Hypertension. 2. Hyperlipidemia. STUDIES DONE WHILE IN THE HOSPITAL: Chest x-ray from 12/05/17 read as cardiomegaly with tortuous aorta. If there is clinical concern for aortic dissection, consider further evaluation with CT angiography of the chest. Electrocardiogram from 12/05/17 showed normal sinus rhythm, left ventricular hypertrophy, early repolarization in V1 through the V4, incomplete right bundle- branch block, T-wave inversion in aVL, left atrial enlargement. No other abnormalities. Repeat EKG showed new T-wave inversion in V5 and V6. No other significant changes. CTA chest, abdomen, pelvis from 12/05/17 read as small burden of acute pulmonary embolism in the right upper lobe and right middle lobe , consolidation of the right lower lobe may be secondary to pneumonia or smaller CT occult pulmonary emboli, negative for pleural effusion, negative for aneurysm, dissection of the abdominal aorta, non-emergent followup ultrasound of the left kidney suggested to differentiate between hyperdense cyst and a solid 3.4 cm lesion at the mid pole. Transthoracic echocardiogram from 12/05/17 read as left ventricular chamber size is normal, mild concentric left ventricular hypertrophy, preserved estimated ejection fraction 55% to 60%, normal left systolic function observed, left ventricular diastolic is impaired and consistent with pseudonormalization. Left ventricular diastolic filling pattern is consistent with elevated mean left atrial pressure, left atrium is mildly dilated. Left ventricular chamber size and systolic function is within normal limits. Right atrial size is normal. There is trace aortic regurgitation, mild mitral regurgitation. MEDICATIONS AT DISCHARGE: 1. Loratadine 10 mg p.o. daily. 2. Carvedilol 25 mg p.o. b.i.d. 3. Benzonatate 100 mg p.o. b.i.d. as needed. 4. Pravastatin 40 mg p.o. at bedtime. 5. Cefdinir 300 mg p.o. b.i.d. x8. 6. Azithromycin 250 mg p.o. daily x2. 7. Xarelto 50 mg p.o. b.i.d. x37. 8. Lisinopril 10 mg p.o. daily. 9. Lactobacillus acidophilus 1 tab p.o. daily. 10. Guaifenesin 1200 mg p.o. b.i.d. 11. Amlodipine 10 mg p.o. daily. Medications discontinued at discharge: 1. Amlodipine/benazepril 1 cap p.o. daily. New medications at discharge: 1. Amlodipine. 2. Benzonatate. 3. Guaifenesin. 4. Lactobacillus acidophilus. 5. Lisinopril. 6. Xarelto. 7. Azithromycin. 8. Cefdinir. HOSPITAL COURSE: This is a brief summary of the patient's presentation. For more details, please see history and physical from MARY Vogt 12/05/17. In brief, the patient is a 57-year-old male who is generally healthy, but he has had 2 weeks of productive cough, who presented to his primary care provider' s office for evaluation of this and was found to have a blood pressure greater than 200/100. Patient had been on blood pressure medications before, but had stopped them over a year ago. Patient has no signs of end organ dysfunction or acute CHF. Patient was admitted to the intensive care unit where he was initially on labetalol drip and then changed to nifedipine drip, which with a goal blood pressure decrease of 25% in the first 24 hours. Patient's blood pressure was maintained in approximately this range with no signs of hypoperfusion for the first 24 hours, then he was introduced on 2 oral medications, which comprised initially carvedilol 25 mg p.o. daily and amlodipine 5 mg p.o. daily. Patient's blood pressure remained persistently elevated with blood pressures in the 180s/110s. Patient's amlodipine dose was increased and lisinopril was added with only a mild decrease in patient's blood pressure. Patient's lisinopril dose was increased. The patient during this hospitalization was found in the emergency department to have a small pulmonary embolism and as above the patient was started on Xarelto. The patient had no echocardiogram evidence of pulmonary embolism. The patient had no provoking factors for this pulmonary embolism. The patient tolerated Xarelto well. The patient also had consolidation on chest x-ray with the above symptoms of lower respiratory infection. Patient had 2 negative procalcitonins, but given his productive cough, he was treated empirically with ceftriaxone and azithromycin. Patient improved greatly on this regimen. Patient felt much better and had only a mild nonproductive cough on his day of discharge. Patient was anxious for discharge on 12/08/17 and was stable for discharge to home with close followup with his primary care provider. PHYSICAL EXAMINATION ON DAY OF DISCHARGE: General: The patient is a 57-year- old male, who appears stated age and sitting comfortably in bed, in no acute distress. HEENT: Head: Normocephalic, atraumatic. Sclerae anicteric. No conjunctival injection. Nasal mucosa moist. Oral mucosa moist. Vital Signs: At the time of evaluation, temperature 98.4, pulse rate 69, respiratory rate 16 , oxygen saturation 96% on room air, blood pressure 180/112. Neck: Supple, nontender. No lymphadenopathy. No carotid bruits auscultated. No JVD. Cardiac: Regular rate and rhythm. No clicks, murmurs, gallops, or rubs. Pulses are 2+ in the bilateral dorsalis pedis, posterior tibial, and radial areas. Respiratory: Clear to auscultation bilaterally. No wheezes, rales, or rhonchi. Good air exchange bilaterally. Abdomen: Soft, nontender, nondistended. Bowel sounds present. Normoactive in all 4 quadrants. No hepatosplenomegaly. No abdominal bruits auscultated. No hepatojugular reflux. Genitourinary: No suprapubic or CVA tenderness. Skin: Clean, dry, intact. No rash. Neuro: Cranial nerves II through XII intact. No focal deficits. Alert and oriented x3. Psychiatric: Pleasant and cooperative. DISCHARGE PLAN: The patient will be discharged to home. The patient has been started on 3 new medications for his hypertension while in the hospital, which are amlodipine, lisinopril, and carvedilol as above and these may be adjusted for efficacy based on his response to his medications per his primary care provider. Patient was still significantly hypertensive before he left the hospital and his lisinopril dose was increased from 5 to 10 on the day of discharge. Patient received ceftriaxone, azithromycin while in the hospital and we transitioned to oral azithromycin and cefdinir to complete a 7 and 5-day course respectively. Patient will be started on Xarelto. The patient should finish his starter pack of 21 days of Xarelto 15 mg b.i.d., which consists of 39 more doses starting in the evening of 12/08. Patient at that time is deemed appropriate by his primary care provider should be prescribed Xarelto 20 mg p.o. daily. Given patient's unprovoked PE, anticoagulation should be continued for at least 3 months before and then its continued appropriateness should be evaluated. Patient to return to the hospital for alarming symptoms such as passing out, chest pain, shortness of breath, lack of urine output, sudden changes in his vision, weakness, or other alarming symptoms. The patient to take his blood pressure twice a day as able and bring these readings into his primary care doctor's office. Patient to follow up with his primary care doctor early in the week of 12/10/17 for general medical management and for a recheck of his blood pressure. Patient is to get activity as tolerated. Patient should have a heart healthy diet without caffeine. TIME SPENT: Approximately 60 minutes was spent on the discharge of this patient , 30 of which was spent [id number] with the patient obtaining history and physical and discussing treatment plan. MARY VOGT [id number]/CPS #: [id number] MTDWard
== END 2017-12-08 11:30 | disposition home or self-care (01) | DRG 139 ==
LOC: ED 14:27 → ICU 18:24 → MEDTELE 12-06 18:40
PROVIDERS: ADMIT Internal Medicine; ATTEND Internal Medicine
DX: J18.8 Other pneumonia, unspecified organism (principal); I26.99 Other pulmonary embolism without acute cor pulmonale; I16.0 Hypertensive urgency; E78.5 Hyperlipidemia, unspecified; I10 Essential (primary) hypertension; I45.10 Unspecified right bundle-branch block; Z79.899 Other long term (current) drug therapy; Z80.7 Family history of other malignant neoplasms of lymphoid, hematopoietic and related tissues; Z82.49 Family history of ischemic heart disease and other diseases of the circulatory system
CPT/HCPCS: 36415; 71045; 71275; 74174; 80048; 80053; 80061; 83036; 83605; 83735; 83880; 84145; 84484; 85025; 85610; 85652; 85730; 86140; 87641; 87899; 93005; 93306; 99285; A9270-GY; J0456; J0696; Q9967